=== PATIENT | male | born 1935 | race Caucasian/White ===

== ENCOUNTER 2018-01-31 20:41 | Emergency (ER) | payer OTHER ==
[~2018-01-31] VITALS: Ht 175.3 cm; Wt 80.3 kg
--- NOTE | 2018-01-31 20:45 | NUR ---
TO BED 10 BIB PARAMEDICS C/O GENRALIZED WEAKNEES S/P DIALYSIS TODAY. PT AAOX4 NO ACUTE DISTRESS NOTED, RESP EVEN AND UNLABORED. PLACE PT ON CARDIAC MONITORING, CONTINUOUS POX. ER MD AT BEDSIDE TO EVAL PT WITH ORDERS RECEIVED. WILL CARRY OUT ORDERS.
[2018-01-31] MEDS ORDERED: LORAZEPAM INJ 2 MG/ML VIAL IM ONE (21:00)
[2018-01-31] MEDS ORDERED: OLANZAPINE 10 MG VIAL IM ONE (21:00)
--- NOTE | 2018-01-31 21:01 | NUR ---
CHEF CONCIERGE AT BEDSIDE FOR BLOOD DRAW.
[2018-01-31 21:24] LABS: CALCIUM, SERUM 7.8 mg/dL (8.5-10.1); CARBON DIOXIDE 30 mmol/L (21-32); CHLORIDE 101 mmol/L (98-107); CREATININE 2.6 mg/dL (0.6-1.3); GLUCOSE 139 mg/dL (74-106); POTASSIUM 3.3 mmol/L (3.5-5.1); SODIUM SERUM 138 mmol/L (136-145); UREA NITROGEN, BLOOD 33 mg/dL (7-18)
[2018-01-31] MEDS ORDERED: VANCOMYCIN 1 GM VIAL ONE (21:32)
[2018-01-31] MEDS ORDERED: PIPERACILLIN /TAZOBACTAM 3.375 G VIAL IV ONE (21:32)
[2018-01-31 21:33] LABS: TROPONIN I 0.081 ng/mL (0.00-0.056)
[2018-01-31] MEDS: PIPERACILLIN /TAZOBACTAM 3.375 G in IV D5W 50 ML IV ONE (21:40)
[2018-01-31 21:41] LABS: BASOPHILS % (AUTO) 0.2 % (0.0-2.0); EOSINOPHILS % (AUTO) 1.6 % (0.0-6.0); HEMATOCRIT 33 % (39-51); HEMOGLOBIN 10.8 g/dL (13.5-17.5); LYMPHOCYTES # (AUTO) 0.8 /CMM (0.8-4.8); LYMPHOCYTES % (AUTO) 9.8 % (20.0-44.0); MEAN CORPUSCULAR HGB CONC 33 g/dl (31.0-36.0); MEAN CORPUSCULAR VOLUME 92 fL (80-96); MONOCYTES # (AUTO) 0.7 /CMM (0.1-1.30); MONOCYTES % (AUTO) 8.1 % (2.0-12.0); NEUTROPHILS # (AUTO) 6.7 /CMM (1.8-8.9); NEUTROPHILS % (AUTO) 80.3 % (43.0-81.0); RDW COEFFICIENT OF VARIATION 17.9 (11.5-15.0); RED BLOOD CELL COUNT(AUTO) 3.56 MIL/uL (4.5-6.0); WHITE BLOOD COUNT (AUTO) 8.4 K/uL (4.3-11.0)
[2018-01-31 21:42] LABS: NEUTROPHILS % (MANUAL) 72 (42-76); PLATELET COUNT (AUTO) 19 /CMM (150-450)
[2018-01-31 21:43] LABS: BAND % (MANUAL) 1 % (0.0-5.0); BASOPHILS % (MANUAL) 0 % (0.0-2.0); EOSINOPHILS % (MANUAL) 2 % (0-4); LYMPHOCYTES % (MANUAL) 12 % (16-48); MONOCYTES % (MANUAL) 13 % (0-11.0)
--- NOTE | 2018-01-31 21:50 | NUR ---
CALLED [facility] FOR TO
[2018-01-31] MEDS: VANCOMYCIN 1 GM in IV D5W 250 ML IV ONE (22:10)
--- NOTE | 2018-01-31 22:57 | NUR ---
pt resting quietly, no acute distress noted, resp even and unlabored. pt remains at bedside.
--- NOTE | 2018-01-31 23:12 | NUR ---
CALLED [facility] FOR TRANSFER DETAILS - THEY ARE STILL WAITING FOR ACCEPTING DR AND BED ASSIGNMENT
--- NOTE | 2018-01-31 23:34 | NUR ---
[facility]; Dr. joel accepting; room 6108 b; report [phone]; eta 1230
--- NOTE | 2018-02-01 00:10 | NUR ---
REPORT CALLED TO [facility] PK HEDRICK. AWAITING TRANSPORT.
[2018-02-01 00:11] VITALS: BP 106/53
--- NOTE | 2018-02-01 00:16 | NUR ---
[facility]SPORT AT BEDSIDE REPORT GIVEN TO HYDROGEOLOGY PROFESSOR.
[2018-02-01 01:10] LABS: BILIRUBIN,DIRECT 0.2 mg/dL (0.0-0.2); BILIRUBIN,TOTAL 0.6 mg/dL (0.2-1.0)
== END 2018-02-01 00:17 | disposition short-term general hospital (02) ==
LOC: ER 20:45
DX: L03.114 Cellulitis of left upper limb (principal); D69.6 Thrombocytopenia, unspecified; I12.0 Hypertensive chronic kidney disease with stage 5 chronic kidney disease or end stage renal disease; N18.6 End stage renal disease; Z99.2 Dependence on renal dialysis; R50.9 Fever, unspecified; Z49.01 Encounter for fitting and adjustment of extracorporeal dialysis catheter
CPT/HCPCS: 36415; 71045-TC; 80048-TC; 82247-TC; 82248-TC; 83605-TC; 84484-TC; 85025-TC; 85730-TC; 87040-TC; A4606; J2543; J3370; J7060; Z7610

== ENCOUNTER 2019-04-25 12:23 | Emergency (ER) | payer OTHER ==
[~2019-04-25] VITALS: Ht 172.7 cm; Wt 88.0 kg
--- NOTE | 2019-04-25 12:30 | NUR ---
PT BIB C/O R HIP PAIN, FORHEAD ABRASION AND BRUISING S/P GLF AT HOME, PT IS AAOX4, NOT IN RESPIRATORY DISTRESS, V/S STABLE, KEPT RESTED AND COMFORTABLE, WILL CONTINUE TO MONITOR,
--- NOTE | 2019-04-25 12:45 | NUR ---
SEEN AND EXAMINED BY DR. SAMPSON.
[2019-04-25] MEDS ORDERED: ONDANSETRON HCL/PF 4 MG/2 ML VIAL ONE (12:54)
[2019-04-25] MEDS ORDERED: MORPHINE SULFATE INJ 4 MG/ML DISP.SYRIN ONE ×2 (12:59→15:11)
[2019-04-25] MEDS ORDERED: ONDANSETRON HCL/PF 4 MG/2 ML VIAL IVP ONE (13:00)
[2019-04-25] MEDS ORDERED: IV NS 0.9% 1,000 ML BAG IV ONE (13:00)
[2019-04-25] MEDS ORDERED: MORPHINE SULFATE INJ 2 MG/ML DISP.SYRIN IV ONE ×2 (13:00→15:30)
--- NOTE | 2019-04-25 13:00 | NUR ---
IV LINE ESTABLISHED, BLOOD DRAWNED AND SENT TO LAB.
[2019-04-25 13:01] LABS: EOSINOPHILS % (AUTO) 2.7 % (0.0-6.0); HEMATOCRIT 33 % (39-51); LYMPHOCYTES % (AUTO) 23.3 % (20.0-44.0); MEAN CORPUSCULAR HGB CONC 33 g/dl (31.0-36.0); MEAN CORPUSCULAR VOLUME 91 fL (80-96); MONOCYTES # (AUTO) 0.5 /CMM (0.1-1.30); MONOCYTES % (AUTO) 11.6 % (2.0-12.0); NEUTROPHILS # (AUTO) 2.7 /CMM (1.8-8.9); NEUTROPHILS % (AUTO) 61.4 % (43.0-81.0); PLATELET COUNT (AUTO) 174 /CMM (150-450); RED BLOOD CELL COUNT(AUTO) 3.64 MIL/uL (4.5-6.0); WHITE BLOOD COUNT (AUTO) 4.4 K/uL (4.3-11.0)
--- NOTE | 2019-04-25 13:05 | NUR ---
PT IS WHEELED TO CT SCAN VIA [facility].
[2019-04-25 13:17] LABS: ALANINE AMINOTRANSFERASE 12 U/L (12-78); ALBUMIN 2.5 g/dL (3.4-5.0); ALKALINE PHOSPHATASE 90 U/L (46-116); ASPARTATE AMINOTRANSFERASE 17 U/L (15-37); BILIRUBIN,DIRECT 0.1 mg/dL (0.0-0.2); BILIRUBIN,TOTAL 0.5 mg/dL (0.2-1.0); CALCIUM, SERUM 8.3 mg/dL (8.5-10.1); CARBON DIOXIDE 32 mmol/L (21-32); CHLORIDE 101 mmol/L (98-107); CREATININE 6.3 mg/dL (0.6-1.3); GLUCOSE 124 mg/dL (74-106); POTASSIUM 4.2 mmol/L (3.5-5.1); SODIUM SERUM 140 mmol/L (136-145); TOTAL PROTEIN, SERUM 6.1 g/dL (6.4-8.2); UREA NITROGEN, BLOOD 62 mg/dL (7-18)
--- NOTE | 2019-04-25 13:23 | NUR ---
OPTICAL SALES ASSOCIATE AT BEDSIDE FOR XRAY.
--- NOTE | 2019-04-25 13:50 | NUR ---
CALLED [facility] FOR TRANSFER REQUEST. WAITING FOR MD CALL BACK
[2019-04-25] MEDS ORDERED: TDAP [DIPH/PERTUSSIS/TET] 0.5 ML VIAL IM ONE ×2 (13:56→14:00)
[2019-04-25] MEDS ORDERED: BACI/NEOM/POLY B OINT PKT 1 UDPKT PACKET TP ONE (14:00)
--- NOTE | 2019-04-25 14:11 | NUR ---
WOUND CARE DONE BY SLOT TAG INSERTER.
--- NOTE | 2019-04-25 14:58 | NUR ---
TRANSFER INFO: [facility] DIRECT ADMIT TO PK Wiley FOR REPORT [phone], ACCEPTING Timbo MILLER [facility] ETA 1600
--- NOTE | 2019-04-25 15:40 | NUR ---
REPORT GIVEN PK ENRIQUEZ FROM [facility] FOR SUZIE.
--- NOTE | 2019-04-25 15:58 | NUR ---
REPORT GIVEN TO EMT FOR PT TRANSPORT.
[2019-04-25 15:59] VITALS: BP 154/92
== END 2019-04-25 16:02 | disposition short-term general hospital (02) ==
LOC: ER 12:26
DX: S72.144A Nondisplaced intertrochanteric fracture of right femur, initial encounter for closed fracture (principal); S61.411A Laceration without foreign body of right hand, initial encounter; S00.83XA Contusion of other part of head, initial encounter; R51 Headache; N18.6 End stage renal disease; Z85.46 Personal history of malignant neoplasm of prostate; Z98.890 Other specified postprocedural states; W01.198A Fall on same level from slipping, tripping and stumbling with subsequent striking against other object, initial encounter; Y93.01 Activity, walking, marching and hiking; Y92.89 Other specified places as the place of occurrence of the external cause; Y99.8 Other external cause status
CPT/HCPCS: 36415; 70450; 71045; 73130; 73502; 80048; 80076; 85025; 85730; 90471; 90715; 93005; 96372; 96374; 96375; 96376; 99285; A6403 ×2; J2270 ×2; J2405; J7030

== ENCOUNTER 2019-10-26 15:34 | Emergency (ER) | payer OTHER ==
[~2019-10-26] VITALS: Ht 185.4 cm; Wt 90.7 kg
--- NOTE | 2019-10-26 16:08 | NUR ---
BIBRA FOR GENERALIZED WEAKNESS, REDNESS AND SWELLING AT JUAN LUIS EXTREMITY AND L CHEST AREA. TO ER BED 8, HOOKED TO MONITOR, CHANGED TO HOSP GOWN, AT BEDSIDE, PATIENT AOx3, BREATHING EVEN AND UNLABORED. ON DIALYSIS FOR ESRD ON . LAST DIALYSIS YESTERDAY. AWAITING MD AHUJA.
--- NOTE | 2019-10-26 16:09 | NUR ---
DR ESQUIVEL AT BEDSIDE
[2019-10-26] MEDS ORDERED: ALLO100T PO (16:14)
[2019-10-26] MEDS ORDERED: [UNRECOGNIZED DRUG - OTHER] PO (16:14)
[2019-10-26] MEDS ORDERED: CEFEPIME 1 GM VIAL ONE (16:18)
[2019-10-26] MEDS ORDERED: IBUPROFEN 600 MG TABLET PO ONE (16:18)
[2019-10-26] MEDS ORDERED: PIPERACILLIN /TAZOBACTAM 3.375 G VIAL IV ONE (16:18)
[2019-10-26] MEDS ORDERED: HYDROCORTISONE SOD SUCCINATE 100 MG/2 ML VIAL ONE (16:24)
[2019-10-26] MEDS: IBUPROFEN 600 MG TABLET PO ONE ×2 (16:29→16:31)
[2019-10-26] MEDS ORDERED: CEFEPIME 1 GM in IV D5W 50 ML IV ONE (16:30)
[2019-10-26] MEDS ORDERED: IV NS 0.9% 1,000 ML BAG IV ONE (16:30)
[2019-10-26] MEDS ORDERED: PIPERACILLIN /TAZOBACTAM 3.375 G in IV D5W 50 ML IV ONE (16:30)
[2019-10-26] MEDS ORDERED: HYDROCORTISONE SOD SUCCINATE 100 MG/2 ML VIAL IV ONE (16:30)
[2019-10-26] MEDS ORDERED: VANCOMYCIN 1 GM in IV D5W 250 ML IV ONE (16:30)
[2019-10-26 16:32] LABS: EOSINOPHILS % (AUTO) 0.4 % (0.0-6.0); HEMATOCRIT 37 % (39-51); HEMOGLOBIN 11.8 g/dL (13.5-17.5); LYMPHOCYTES # (AUTO) 0.4 /CMM (0.8-4.8); LYMPHOCYTES % (AUTO) 4.4 % (20.0-44.0); MEAN CORPUSCULAR HGB CONC 32 g/dl (31.0-36.0); MEAN CORPUSCULAR VOLUME 93 fL (80-96); MONOCYTES # (AUTO) 0.3 /CMM (0.1-1.30); MONOCYTES % (AUTO) 3.2 % (2.0-12.0); NEUTROPHILS # (AUTO) 7.4 /CMM (1.8-8.9); PLATELET COUNT (AUTO) 204 /CMM (150-450); RED BLOOD CELL COUNT(AUTO) 3.93 MIL/uL (4.5-6.0); WHITE BLOOD COUNT (AUTO) 8.1 K/uL (4.3-11.0)
[2019-10-26 16:44] LABS: CALCIUM, SERUM 8.5 mg/dL (8.5-10.1); CARBON DIOXIDE 32 mmol/L (21-32); CHLORIDE 100 mmol/L (98-107); GLUCOSE 99 mg/dL (74-106); POTASSIUM 4.2 mmol/L (3.5-5.1); SODIUM SERUM 142 mmol/L (136-145); UREA NITROGEN, BLOOD 61 mg/dL (7-18)
[2019-10-26 16:50] LABS: ALANINE AMINOTRANSFERASE 13 U/L (12-78); ALBUMIN 2.6 g/dL (3.4-5.0); ALKALINE PHOSPHATASE 108 U/L (46-116); ASPARTATE AMINOTRANSFERASE 23 U/L (15-37); BILIRUBIN,DIRECT 0.2 mg/dL (0.0-0.2); TOTAL PROTEIN, SERUM 6.6 g/dL (6.4-8.2)
--- NOTE | 2019-10-26 17:00 | NUR ---
CALLED [facility] [phone]
--- NOTE | 2019-10-26 17:03 | NUR ---
Note rebeccaone in EDM - 10/26/19 at 1806 by JOSE BIBRA FOR GENERALIZED WEAKNESS, REDNESS AND SWELLING AT JUAN LUIS EXTREMITY AND L CHEST AREA. TO ER BED 8, HOOKED TO MONITOR, CHANGED TO HOSP GOWN, AT BEDSIDE, PATIENT AOx3, BREATHING EVEN AND UNLABORED. ON DIALYSIS FOR ESRD ON . LAST DIALYSIS YESTERDAY. DR ESQUIVEL AT BEDSIDE
--- NOTE | 2019-10-26 18:00 | NUR ---
US TECH AT BEDSIDE
[2019-10-26 21:29] VITALS: BP 108/63
--- NOTE | 2019-10-26 21:51 | NUR ---
TRANSFER INFORMATION: PT WILL BE TRANSFERRED TO [facility] PER INSURANCE REQUEST BED ASSIGNMENT: TELE [id number] NUMBER FOR REPORT: [phone] ACCEPTING MD: DR. ESPINOZA TRANSPORTATION WITH [facility] ETA 0258
--- NOTE | 2019-10-26 22:07 | NUR ---
[facility] WILL CALL BACK FOR REPORT. NURSE IS NOT AVAILABLE
--- NOTE | 2019-10-26 22:27 | NUR ---
REPORT GIVEN TO PK [facility]
--- NOTE | 2019-10-26 22:30 | NUR ---
REPORT GIVEN TO EMS. PT STABLE FOR TRANSFER
== END 2019-10-26 22:44 | disposition short-term general hospital (02) ==
LOC: ER 15:38
DX: A41.9 Sepsis, unspecified organism (principal); N18.6 End stage renal disease; L03.313 Cellulitis of chest wall; Z99.2 Dependence on renal dialysis; Z98.890 Other specified postprocedural states; Z85.46 Personal history of malignant neoplasm of prostate; Z79.899 Other long term (current) drug therapy
CPT/HCPCS: 36415; 71045; 80048; 80076; 83605; 84145; 84484; 85025; 85730; 86140; 86850; 87040 ×2; 87804 ×2; 93005; 93971; 96365; 96367; 96375; 99285; J1720; J2543 ×2; J3370; J7030; J7060 ×2; J0692

== ENCOUNTER 2020-01-22 13:46 | Emergency (ER) | payer OTHER ==
[~2020-01-22] VITALS: Ht 172.7 cm; Wt 85.7 kg
[~2020-01-22 13:46] MED LIST: ALLO100T PO; [UNRECOGNIZED DRUG - OTHER] PO
--- NOTE | 2020-01-22 13:50 | NUR ---
PT BIBRA FROM HOME TO ED BED 08. PER EMS REPORT, CALLED [phone] S/P PT GOT DIZZY AND WEAK WHILE TRYING TO STAND UP AND AMBULATE. PT JUST FINISHED DIALYSIS TODAY. 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 AWAITING MD AHUJA.
--- NOTE | 2020-01-22 14:24 | NUR ---
DR MCDERMOTT AT BEDSIDE FOR EVAL.
--- NOTE | 2020-01-22 14:30 | NUR ---
IV LINE STARTED BLOOD DRAWN AND SENT TO LAB.
[2020-01-22 15:37] LABS: BASOPHILS # (AUTO) 0.1 /CMM (0.0-0.2); BASOPHILS % (AUTO) 0.8 % (0.0-2.0); EOSINOPHILS % (AUTO) 0.6 % (0.0-6.0); HEMATOCRIT 32 % (39-51); HEMOGLOBIN 10.4 g/dL (13.5-17.5); LYMPHOCYTES # (AUTO) 0.5 /CMM (0.8-4.8); LYMPHOCYTES % (AUTO) 5.5 % (20.0-44.0); MEAN CORPUSCULAR HGB CONC 33 g/dl (31.0-36.0); MEAN CORPUSCULAR VOLUME 95 fL (80-96); MONOCYTES # (AUTO) 0.5 /CMM (0.1-1.30); MONOCYTES % (AUTO) 5.4 % (2.0-12.0); NEUTROPHILS # (AUTO) 7.8 /CMM (1.8-8.9); NEUTROPHILS % (AUTO) 87.7 % (43.0-81.0); PLATELET COUNT (AUTO) 217 /CMM (150-450); RED BLOOD CELL COUNT(AUTO) 3.36 MIL/uL (4.5-6.0); WHITE BLOOD COUNT (AUTO) 8.9 K/uL (4.3-11.0)
[2020-01-22 15:45] LABS: CALCIUM, SERUM 8.9 mg/dL (8.5-10.1); CARBON DIOXIDE 32 mmol/L (21-32); CHLORIDE 100 mmol/L (98-107); CREATININE 2.8 mg/dL (0.6-1.3); GLUCOSE 105 mg/dL (74-106); POTASSIUM 3.5 mmol/L (3.5-5.1); SODIUM SERUM 138 mmol/L (136-145); UREA NITROGEN, BLOOD 27 mg/dL (7-18)
[2020-01-22 15:51] LABS: ALANINE AMINOTRANSFERASE 12 U/L (12-78); ALBUMIN 2.6 g/dL (3.4-5.0); ALKALINE PHOSPHATASE 118 U/L (46-116); ASPARTATE AMINOTRANSFERASE 20 U/L (15-37); BILIRUBIN,DIRECT 0.2 mg/dL (0.0-0.2); BILIRUBIN,TOTAL 0.8 mg/dL (0.2-1.0); TOTAL PROTEIN, SERUM 6.7 g/dL (6.4-8.2)
--- NOTE | 2020-01-22 16:27 | NUR ---
PT TO RADIOLOGY FOR HEAD CT SCAN VIA [facility].
[2020-01-22 16:38] LABS: APPEARANCE,URINE Clear (CLEAR); BILIRUBIN,URINE Negative (NEGATIVE); BLOOD, URINE Negative Ery/uL (NEGATIVE); COLOR,URINE Yellow (YELLOW); KETONES,URINE Negative (NEGATIVE); LEUKOCYTE ESTERASE ,URINE Negative (NEGATIVE); NITRITE, URINE Negative (NEGATIVE); PH,URINE 8.5 (5.0-8.0); PROTEIN,URINE 100 mg/dl (NEGATIVE); UGLUCOSE Negative (NEGATIVE); UROBILINOGEN,URINE 0.2 EU/dL (0.2)
[2020-01-22 16:39] LABS: RBC,URINE 0-2 /HPF (0-2)
[2020-01-22 16:40] LABS: BACTERIA,URINE None seen /HPF (None Seen); SQUAMOUS EPITHELIAL CELL,UR Rare /HPF (None Seen)
--- NOTE | 2020-01-22 17:55 | NUR ---
PT MORE AWAKE. ASK FOR SOMETHIG TO EAT. PROVIDED W/ MEAL TRAY.
--- NOTE | 2020-01-22 18:20 | NUR ---
CALLED [facility].
--- NOTE | 2020-01-22 19:15 | NUR ---
REPORT GIVEN TO HERIBERTO WHITTINGTON FOR SUZIE.
--- NOTE | 2020-01-22 20:25 | NUR ---
PATIENT NOTIFIED OF 'S CONCERN DUE TO NOT PICKING UP HIS PHONE.
--- NOTE | 2020-01-22 20:28 | NUR ---
PATIENT TALKING TO ON PHONE.
--- NOTE | 2020-01-22 21:30 | NUR ---
RECEIVED CALL FROM [facility]. [facility] tele [phone] dr. megha pulido als prn [phone]
[2020-01-22 22:07] VITALS: BP 125/67
--- NOTE | 2020-01-22 22:16 | NUR ---
REPORT GIVEN TO DOLORES WHITTINGTON AT [facility] FOR SUZIE.
--- NOTE | 2020-01-22 22:17 | NUR ---
REPORT GIVEN TO TRANSPORT TEAM FOR SUZIE. AND TRANSFERRING RESPONSIBILITIES.
== END 2020-01-22 22:25 | disposition short-term general hospital (02) ==
LOC: ER 13:51
DX: R53.1 Weakness (principal); N18.6 End stage renal disease; Z99.2 Dependence on renal dialysis; Z98.890 Other specified postprocedural states; Z79.899 Other long term (current) drug therapy
CPT/HCPCS: 36415; 70450-TC; 71045-TC; 80048-TC; 80076-TC; 81000-TC; 83605-TC; 84484-TC; 85025-TC; 85730-TC; 87040-TC; 87086-TC

== ENCOUNTER 2020-06-17 08:30 | Emergency (ER) | payer OTHER ==
[~2020-06-17] VITALS: Ht 172.7 cm; Wt 74.8 kg
--- NOTE | 2020-06-17 08:30 | NUR ---
PT BIBA FROM HOME S/P GLF. PT DENIES KO. PT STATES " I GOT DIZZY THEN FELL DOWN". PT AAOX4, LACERATION ON THE FOREHEAD NOTED, RESPIRATIONS EVEN AND UNLABORED ON RA W/ NAD NOTED. PT CONNECTED TO THE COMPRESSED GASES TESTER AND POX.
--- NOTE | 2020-06-17 08:35 | NUR ---
BLOOD COLLECTED AND SENT TO LAB
[2020-06-17] MEDS ORDERED: IV NS 0.9% 500 ML BAG IV ONE (09:00)
[2020-06-17 09:11] LABS: BASOPHILS % (AUTO) 0.7 % (0.0-2.0); EOSINOPHILS % (AUTO) 3.9 % (0.0-6.0); HEMATOCRIT 32 % (39-51); HEMOGLOBIN 10.5 g/dL (13.5-17.5); LYMPHOCYTES # (AUTO) 0.9 /CMM (0.8-4.8); LYMPHOCYTES % (AUTO) 22.6 % (20.0-44.0); MEAN CORPUSCULAR HGB CONC 32 g/dl (31.0-36.0); MEAN CORPUSCULAR VOLUME 99 fL (80-96); MONOCYTES # (AUTO) 0.5 /CMM (0.1-1.30); MONOCYTES % (AUTO) 12.6 % (2.0-12.0); NEUTROPHILS # (AUTO) 2.5 /CMM (1.8-8.9); NEUTROPHILS % (AUTO) 60.2 % (43.0-81.0); PLATELET COUNT (AUTO) 192 /CMM (150-450); RED BLOOD CELL COUNT(AUTO) 3.27 MIL/uL (4.5-6.0); WHITE BLOOD COUNT (AUTO) 4.1 K/uL (4.3-11.0)
--- NOTE | 2020-06-17 09:20 | NUR ---
PT TAKEN TO RADIOLOGY FOR CT
[2020-06-17] MEDS ORDERED: ROSU20TA32 PO (09:31)
[2020-06-17 09:32] LABS: CALCIUM, SERUM 8.1 mg/dL (8.5-10.1); CARBON DIOXIDE 22 mmol/L (21-32); CHLORIDE 101 mmol/L (98-107); CREATININE 6.2 mg/dL (0.6-1.3); GLUCOSE 73 mg/dL (74-106); SODIUM SERUM 138 mmol/L (136-145); UREA NITROGEN, BLOOD 78 mg/dL (7-18)
--- NOTE | 2020-06-17 09:44 | NUR ---
PT BACK FROM RADIOLOGY
--- NOTE | 2020-06-17 10:14 | NUR ---
[facility] CALLED AND PRESENTED CASE TO SUNDEEP WHITTINGTON,BYRON ASHFORD WILL GIVE US A CALL
--- NOTE | 2020-06-17 11:53 | NUR ---
ACCEPTED TO [facility] BY Shelley SHEPARD GIVE REPORT TO [phone]. [facility] ETA:[id number]
[2020-06-17 12:34] VITALS: BP 107/55
--- NOTE | 2020-06-17 12:50 | NUR ---
REPORT GIVEN TO PK VALDES FOR SUZIE AT THE [facility]
--- NOTE | 2020-06-17 12:51 | NUR ---
[facility] AT BEDSIDE FOR PT TRANSPORT TO [facility]. REPORT GIVEN.
--- NOTE | 2020-06-17 12:55 | NUR ---
PT LEFT ON GURNEY WITH 2 AMBULANCE STAFF ON STABLE CONDITION, NAD NOTED.
== END 2020-06-17 12:56 | disposition short-term general hospital (02) ==
LOC: ER 08:37
DX: S00.03XA Contusion of scalp, initial encounter (principal); R53.1 Weakness; I12.0 Hypertensive chronic kidney disease with stage 5 chronic kidney disease or end stage renal disease; E11.22 Type 2 diabetes mellitus with diabetic chronic kidney disease; N18.6 End stage renal disease; R42 Dizziness and giddiness; Z99.2 Dependence on renal dialysis; Z98.890 Other specified postprocedural states; Z85.46 Personal history of malignant neoplasm of prostate; Z79.899 Other long term (current) drug therapy; W18.39XA Other fall on same level, initial encounter; Y93.89 Activity, other specified; Y92.89 Other specified places as the place of occurrence of the external cause; Y99.8 Other external cause status
CPT/HCPCS: 36415; 70450; 71045; 80048; 84484; 85025; 93005; 96360; 96361; 99285; J7040

== ENCOUNTER 2021-03-19 23:19 | Emergency (ER) | payer OTHER ==
[~2021-03-19] VITALS: Ht 172.7 cm; Wt 76.7 kg
[~2021-03-19 23:19] MED LIST changes: -ALLO100T PO; +ROSU20TA32 PO
[2021-03-19 23:54] LABS: BASOPHILS % (AUTO) 0.5 % (0.0-2.0); EOSINOPHILS % (AUTO) 0.4 % (0.0-6.0); HEMATOCRIT 38 % (39-51); HEMOGLOBIN 12.1 g/dL (13.5-17.5); LYMPHOCYTES # (AUTO) 0.5 /CMM (0.8-4.8); LYMPHOCYTES % (AUTO) 5.2 % (20.0-44.0); MEAN CORPUSCULAR HGB CONC 32 g/dl (31.0-36.0); MEAN CORPUSCULAR VOLUME 100 fL (80-96); MONOCYTES # (AUTO) 0.2 /CMM (0.1-1.30); MONOCYTES % (AUTO) 2.6 % (2.0-12.0); NEUTROPHILS % (AUTO) 91.3 % (43.0-81.0); PLATELET COUNT (AUTO) 158 /CMM (150-450); RED BLOOD CELL COUNT(AUTO) 3.78 MIL/uL (4.5-6.0); WHITE BLOOD COUNT (AUTO) 8.7 K/uL (4.3-11.0)
[2021-03-20] MEDS ORDERED: VANCOMYCIN 1 GM in IV D5W 250 ML IV ONE
[2021-03-20] MEDS ORDERED: VANCOMYCIN 1 GM VIAL ONE (00:02)
[2021-03-20 00:10] LABS: CALCIUM, SERUM 8.8 mg/dL (8.5-10.1); CARBON DIOXIDE 32 mmol/L (21-32); CHLORIDE 101 mmol/L (98-107); CREATININE 3.7 mg/dL (0.6-1.3); GLUCOSE 100 mg/dL (74-106); PHOSPHORUS 2.6 mg/dL (2.5-4.9); POTASSIUM 4.4 mmol/L (3.5-5.1); SODIUM SERUM 141 mmol/L (136-145); UREA NITROGEN, BLOOD 38 mg/dL (7-18)
[2021-03-20 00:20] LABS: ALANINE AMINOTRANSFERASE 12 U/L (12-78); ALBUMIN 2.9 g/dL (3.4-5.0); ALKALINE PHOSPHATASE 141 U/L (46-116); ASPARTATE AMINOTRANSFERASE 22 U/L (15-37); BILIRUBIN,DIRECT 0.2 mg/dL (0.0-0.2); BILIRUBIN,TOTAL 0.8 mg/dL (0.2-1.0); NT-PRO BNP 7986 pg/mL (0-125); TOTAL PROTEIN, SERUM 6.9 g/dL (6.4-8.2)
[2021-03-20 04:30] VITALS: BP 116/62
== END 2021-03-20 04:50 | disposition short-term general hospital (02) ==
LOC: ER 23:21
DX: L03.114 Cellulitis of left upper limb (principal); L03.313 Cellulitis of chest wall; N18.6 End stage renal disease; Z99.2 Dependence on renal dialysis; Z20.822 Contact with and (suspected) exposure to COVID-19; R94.31 Abnormal electrocardiogram [ECG] [EKG]; Z85.46 Personal history of malignant neoplasm of prostate; I89.0 Lymphedema, not elsewhere classified
CPT/HCPCS: 36415; 71045; 73060; 73090; 80048; 80076; 83605; 83735; 83880; 84100; 84145; 84484; 85025; 85730; 87040 ×2; 87081; 87426; 93005; 93971; 96365; 99285; C9803; J3370

== ENCOUNTER 2021-04-07 19:27 | Emergency (ER) | payer OTHER ==
[~2021-04-07] VITALS: Ht 172.7 cm; Wt 76.7 kg
--- NOTE | 2021-04-07 19:35 | NUR ---
PATIENT CAME IN WITH C/O NONRADIATING MIDSTERNAL CHEST PAIN X 30 MIN MANAGER INTEGRITY. LAST HD TODAY, LEFT AC SHUNT PRESENT, INTACT. V/S WITHIN NORMAL LIMITS, PATIENT BREAHTING IS EVEN AND UNLAORBED. PATIENT CONNCETED TO CARDIAC MONIOTR AND POX. WILL CONTINUE TO MONIOTR.
[2021-04-07] MEDS ORDERED: NITROGLYCERIN PACKET 1 GM PACKET TD ONE (20:00)
[2021-04-07] MEDS ORDERED: ASPIRIN 325 MG TABLET PO ONE (20:00)
[2021-04-07 20:09] LABS: CALCIUM, SERUM 8.4 mg/dL (8.5-10.1); CARBON DIOXIDE 33 mmol/L (21-32); CHLORIDE 99 mmol/L (98-107); CREATININE 3.3 mg/dL (0.6-1.3); GLUCOSE 98 mg/dL (74-106); POTASSIUM 4.8 mmol/L (3.5-5.1); SODIUM SERUM 138 mmol/L (136-145); UREA NITROGEN, BLOOD 39 mg/dL (7-18)
[2021-04-07] MEDS ORDERED: ASPIRIN 325 MG TABLET ONE (20:11)
[2021-04-07] MEDS ORDERED: NITROGLYCERIN PACKET 1 GM PACKET ONE (20:11)
--- NOTE | 2021-04-07 20:20 | NUR ---
PATIENT TO CT Addendum: 04/07/21 at 2027 by COLIN X RAY AT BEDSIDE
[2021-04-07 20:37] LABS: BASOPHILS % (AUTO) 0.4 % (0.0-2.0); EOSINOPHILS % (AUTO) 3.1 % (0.0-6.0); HEMATOCRIT 32 % (39-51); HEMOGLOBIN 10.6 g/dL (13.5-17.5); LYMPHOCYTES % (AUTO) 30.1 % (20.0-44.0); MEAN CORPUSCULAR HGB CONC 33 g/dl (31.0-36.0); MEAN CORPUSCULAR VOLUME 101 fL (80-96); MONOCYTES # (AUTO) 0.6 /CMM (0.1-1.30); MONOCYTES % (AUTO) 17.8 % (2.0-12.0); NEUTROPHILS # (AUTO) 1.6 /CMM (1.8-8.9); NEUTROPHILS % (AUTO) 48.6 % (43.0-81.0); PLATELET COUNT (AUTO) 173 /CMM (150-450); RED BLOOD CELL COUNT(AUTO) 3.22 MIL/uL (4.5-6.0); WHITE BLOOD COUNT (AUTO) 3.3 K/uL (4.3-11.0)
--- NOTE | 2021-04-07 20:39 | NUR ---
[facility] CONTACT CELL: [phone] HOME: [phone]
--- NOTE | 2021-04-07 21:08 | NUR ---
Patient does not wish to proceed with medical care recommended by Dr. DURAN . Patient given information related to possible complications, up to and including , which could occur as a result of leaving the hospital at this time. Patient verbalizes understanding of risks involved due to leaving against medical advice. Patient has signed AMA form.
[2021-04-07 21:09] VITALS: BP 110/65
[2021-04-07 21:11] LABS: EOSINOPHILS % (MANUAL) 4 % (0-4); LYMPHOCYTES % (MANUAL) 30 % (16-48); MONOCYTES % (MANUAL) 16 % (0-11.0); NEUTROPHILS % (MANUAL) 50 (42-76)
== END 2021-04-07 21:09 | disposition left against medical advice (07) ==
LOC: ER 19:29
DX: R07.89 Other chest pain (principal); N18.6 End stage renal disease; Z98.890 Other specified postprocedural states; Z86.73 Personal history of transient ischemic attack (TIA), and cerebral infarction without residual deficits; Z79.899 Other long term (current) drug therapy
CPT/HCPCS: 36415; 71045-TC; 80048-TC; 84484-TC; 85025-TC

== ENCOUNTER 2021-05-06 20:36 | Emergency (ER) | payer OTHER ==
[~2021-05-06] VITALS: Ht 172.7 cm; Wt 76.7 kg
--- NOTE | 2021-05-06 20:41 | NUR ---
PT AAOX4. BIBWIFE C/O CHEST TIGHTNESS 4/10 PAIN. PLACED ON RECEIPT AND REPORT CLERK AND PULSE OX. AWAITING ER MD FOR EVAL AND ORDERS. IV LINE ESTABLISHED LAC 20G, BLOOD WORK COLLECTED, SENT TO LAB.
--- NOTE | 2021-05-06 20:53 | NUR ---
RADIOLOGY AT BEDSIDE
[2021-05-06 21:06] LABS: HEMOGLOBIN 11.6 g/dL (13.5-17.5); LYMPHOCYTES # (AUTO) 1.5 K/uL (0.8-4.8); MONOCYTES # (AUTO) 0.7 K/uL (0.1-1.30); NEUTROPHILS # (AUTO) 2.5 K/uL (1.8-8.9)
[2021-05-06 21:09] LABS: BASOPHILS % (AUTO) 0.2 % (0.0-2.0); EOSINOPHILS % (AUTO) 2.2 % (0.0-6.0); HEMATOCRIT 35 % (39-51); LYMPHOCYTES % (AUTO) 30.4 % (20.0-44.0); MEAN CORPUSCULAR HGB CONC 33 g/dl (31.0-36.0); MEAN CORPUSCULAR VOLUME 99 fL (80-96); MONOCYTES % (AUTO) 15.2 % (2.0-12.0); PLATELET COUNT (AUTO) 180 K/uL (150-450); RED BLOOD CELL COUNT(AUTO) 3.56 MIL/uL (4.5-6.0); WHITE BLOOD COUNT (AUTO) 4.9 K/uL (4.3-11.0)
[2021-05-06 21:18] LABS: CALCIUM, SERUM 8.6 mg/dL (8.5-10.1); CARBON DIOXIDE 27 mmol/L (21-32); CHLORIDE 101 mmol/L (98-107); CREATININE 4.6 mg/dL (0.6-1.3); GLUCOSE 113 mg/dL (74-106); POTASSIUM 4.1 mmol/L (3.5-5.1); SODIUM SERUM 140 mmol/L (136-145); UREA NITROGEN, BLOOD 50 mg/dL (7-18)
[2021-05-06 22:30] LABS: LYMPHOCYTES % (MANUAL) 25 % (16-48); MONOCYTES % (MANUAL) 14 % (0-11.0); NEUTROPHILS % (MANUAL) 59 (42-76)
[2021-05-06 22:31] LABS: EOSINOPHILS % (MANUAL) 2 % (0-4)
--- NOTE | 2021-05-06 22:38 | NUR ---
JAYSONID SWABBED, SENT TO LAB.
[2021-05-06] MEDS ORDERED: ASPIRIN 81 MG TAB.CHEW ONE (22:52)
[2021-05-06] MEDS: ASPIRIN 81 MG TAB.CHEW PO ONE (22:58)
--- NOTE | 2021-05-06 23:16 | NUR ---
CONTACTED [facility] REGARDING PT TRANSFER, BYRON ASHFORD WILL CALL SHORTLY TO SPEAK WITH MARILY ASHFORD
--- NOTE | 2021-05-06 23:26 | NUR ---
DR BERGER FROM [place] ON THE YONG W/ DR VELEZ
[2021-05-07 00:36] VITALS: BP 136/67
--- NOTE | 2021-05-07 01:44 | NUR ---
PT GOT ACCEPTED AT [facility] BY ANA WHITFIELD. GOING TO RM 3721 TELE. # FOR REPORT: [phone]. ALS TRANSPO BY [facility] AT 0245
--- NOTE | 2021-05-07 01:59 | NUR ---
REPORT GIVEN TO SAMEER WHITTINGTON FOR SUZIE.
--- NOTE | 2021-05-07 03:25 | NUR ---
PT TRANSFERED TO [facility]
== END 2021-05-07 04:19 | disposition short-term general hospital (02) ==
LOC: ER 20:38
DX: R07.89 Other chest pain (principal); I49.8 Other specified cardiac arrhythmias; Z20.822 Contact with and (suspected) exposure to COVID-19; N18.6 End stage renal disease; Z99.2 Dependence on renal dialysis; Z85.46 Personal history of malignant neoplasm of prostate
CPT/HCPCS: 36415; 71045; 80048; 84484; 85007; 85025; 87426; 93005; 99285; C9803

== ENCOUNTER 2021-07-03 21:22 | Emergency (ER) | payer OTHER ==
[~2021-07-03] VITALS: Ht 172.7 cm; Wt 75.7 kg
[2021-07-03] MEDS ORDERED: IV NS 0.9% 1,000 ML BAG IV ONE (23:00)
--- NOTE | 2021-07-03 23:00 | NUR ---
PATIENT BIBWIFE C/O SEVERE DIARRHEA S/P ANTIBIOTICS TREATMENT FOR SEPSIS 2 WEEKS AGO. PATIENT DENIES N/V. PATIENT IS A/OX 4, RR EVEN AND UNLABORED, NO SOB NOTED. PATIENT CONNECTED TO DIE REPAIRER FORGING AND POX.
[2021-07-03 23:24] LABS: BASOPHILS % (AUTO) 0.7 % (0.0-2.0); EOSINOPHILS % (AUTO) 3.4 % (0.0-6.0); HEMATOCRIT 31 % (39-51); HEMOGLOBIN 10.1 g/dL (13.5-17.5); LYMPHOCYTES # (AUTO) 1.1 K/uL (0.8-4.8); LYMPHOCYTES % (AUTO) 18.7 % (20.0-44.0); MEAN CORPUSCULAR HGB CONC 33 g/dl (31.0-36.0); MEAN CORPUSCULAR VOLUME 96 fL (80-96); MONOCYTES # (AUTO) 0.8 K/uL (0.1-1.30); NEUTROPHILS # (AUTO) 3.8 K/uL (1.8-8.9); NEUTROPHILS % (AUTO) 63.2 % (43.0-81.0); PLATELET COUNT (AUTO) 232 K/uL (150-450); RED BLOOD CELL COUNT(AUTO) 3.23 MIL/uL (4.5-6.0)
[2021-07-03 23:31] LABS: CALCIUM, SERUM 8.2 mg/dL (8.5-10.1); CARBON DIOXIDE 28 mmol/L (21-32); CHLORIDE 98 mmol/L (98-107); CREATININE 4.9 mg/dL (0.6-1.3); GLUCOSE 87 mg/dL (74-106); POTASSIUM 3.9 mmol/L (3.5-5.1); SODIUM SERUM 138 mmol/L (136-145); UREA NITROGEN, BLOOD 56 mg/dL (7-18)
[2021-07-03 23:38] LABS: ALBUMIN 2.3 g/dL (3.4-5.0); ALKALINE PHOSPHATASE 107 U/L (46-116); ASPARTATE AMINOTRANSFERASE 22 U/L (15-37); BILIRUBIN,DIRECT 0.2 mg/dL (0.0-0.2); BILIRUBIN,TOTAL 0.6 mg/dL (0.2-1.0); LIPASE 72 U/L (73-393); TOTAL PROTEIN, SERUM 6.5 g/dL (6.4-8.2)
[2021-07-03 23:49] LABS: ALANINE AMINOTRANSFERASE < 6 U/L (12-78)
--- NOTE | 2021-07-04 00:12 | NUR ---
CALLED [facility], WILL PICK PT UP ETA 25 MIN.
[2021-07-04 01:14] VITALS: BP 114/55
== END 2021-07-04 00:15 | disposition home or self-care (01) ==
LOC: ER 21:29
DX: R19.7 Diarrhea, unspecified (principal); E11.22 Type 2 diabetes mellitus with diabetic chronic kidney disease; N18.6 End stage renal disease; Z98.890 Other specified postprocedural states; Z79.899 Other long term (current) drug therapy; Z86.73 Personal history of transient ischemic attack (TIA), and cerebral infarction without residual deficits; Z85.46 Personal history of malignant neoplasm of prostate
CPT/HCPCS: 36415; 80048-TC; 80076-TC; 83690-TC; 85025-TC

== ENCOUNTER 2021-07-15 03:12 | Emergency (ER) | payer OTHER ==
[~2021-07-15] VITALS: Ht 172.7 cm; Wt 75.7 kg
--- NOTE | 2021-07-15 03:22 | NUR ---
pt bibra c/o fever. pt aaox4 breathing evenly and unlabored. Upon assessmetn, pt has lue dialysis fistula, lue redness and swelling, and 15cm u shape lac with muscle visualization on left leg calf. Per pt, his left arm is always swollen and red with "lymph edema". Per ems, pt left calf "was caught on the gurney" when they transferred pt from bed to ems gurney. Pt denies pain, md aware and at bedside for evaluation. rt ac 20g initated and blood and blood cultures sent to lab. pt given blanket and call light within reach.
[2021-07-15] MEDS ORDERED: LIDOCAINE HCL/MPF 1% 30 ML VIAL IJ ONE (03:31)
[2021-07-15 03:57] LABS: BASOPHILS % (AUTO) 0.3 % (0.0-2.0); EOSINOPHILS % (AUTO) 0.1 % (0.0-6.0); HEMATOCRIT 33 % (39-51); HEMOGLOBIN 10.5 g/dL (13.5-17.5); LYMPHOCYTES # (AUTO) 0.5 K/uL (0.8-4.8); LYMPHOCYTES % (AUTO) 6.3 % (20.0-44.0); MEAN CORPUSCULAR HGB CONC 32 g/dl (31.0-36.0); MEAN CORPUSCULAR VOLUME 96 fL (80-96); MONOCYTES # (AUTO) 0.2 K/uL (0.1-1.30); MONOCYTES % (AUTO) 2.9 % (2.0-12.0); NEUTROPHILS # (AUTO) 6.9 K/uL (1.8-8.9); NEUTROPHILS % (AUTO) 90.4 % (43.0-81.0); PLATELET COUNT (AUTO) 305 K/uL (150-450); RED BLOOD CELL COUNT(AUTO) 3.41 MIL/uL (4.5-6.0); WHITE BLOOD COUNT (AUTO) 7.7 K/uL (4.3-11.0)
--- NOTE | 2021-07-15 04:01 | NUR ---
[facility] [phone]
[2021-07-15 04:06] LABS: CALCIUM, SERUM 8.3 mg/dL (8.5-10.1); CARBON DIOXIDE 31 mmol/L (21-32); CHLORIDE 102 mmol/L (98-107); CREATININE 3.3 mg/dL (0.6-1.3); GLUCOSE 106 mg/dL (74-106); POTASSIUM 3.8 mmol/L (3.5-5.1); SODIUM SERUM 143 mmol/L (136-145); UREA NITROGEN, BLOOD 32 mg/dL (7-18)
[2021-07-15 04:12] LABS: ALANINE AMINOTRANSFERASE < 6 U/L (12-78); ALBUMIN 2.3 g/dL (3.4-5.0); ALKALINE PHOSPHATASE 129 U/L (46-116); ASPARTATE AMINOTRANSFERASE 23 U/L (15-37); BILIRUBIN,DIRECT 0.2 mg/dL (0.0-0.2); BILIRUBIN,TOTAL 0.7 mg/dL (0.2-1.0); TOTAL PROTEIN, SERUM 6.6 g/dL (6.4-8.2)
--- NOTE | 2021-07-15 04:27 | NUR ---
at bedside for procedure
[2021-07-15] MEDS ORDERED: PIPERACILLIN /TAZOBACTAM 3.375 G in IV D5W 50 ML IV ONE (05:00)
[2021-07-15] MEDS ORDERED: VANCOMYCIN 1 GM in IV D5W 250 ML IV ONE (05:00)
[2021-07-15] MEDS ORDERED: VANCOMYCIN 1 GM VIAL ONE (05:09)
[2021-07-15] MEDS ORDERED: PIPERACILLIN /TAZOBACTAM 3.375 G VIAL IV ONE (05:09)
--- NOTE | 2021-07-15 05:11 | NUR ---
CALLED [facility] TO INFORM THEM THAT THE WORKUP WAS COMPLETED FOR TRANSFER. BODEGA SAID THAT WE SHOULD BE EXPECTING A CALL FROM THEIR RECIEVING DOCTOR PROMPTLY
--- NOTE | 2021-07-15 05:55 | NUR ---
DR RODRIGUEZ CALLED. DR MAKI IS IN ICU FOR A PROCEDURE. WILL CALL [facility] ONCE DR. WHITING IS BACK
--- NOTE | 2021-07-15 06:04 | NUR ---
called and left a message
--- NOTE | 2021-07-15 06:10 | NUR ---
Per us, pt positive for dvt in LUE
--- NOTE | 2021-07-15 06:37 | NUR ---
[facility] ADA[facility] MD PAGED
--- NOTE | 2021-07-15 07:05 | NUR ---
gave report to kourtney Bee for jyoti
[2021-07-15] MEDS ORDERED: ACET-2605 PO (08:00)
[2021-07-15] MEDS ORDERED: MELA5TAB PO (08:00)
[2021-07-15] MEDS ORDERED: VITA1TAB56 PO (08:00)
[2021-07-15] MEDS ORDERED: XTANDI PO (08:00)
--- NOTE | 2021-07-15 08:20 | NUR ---
PT ACCEPTED TO [facility] DR. DONNELLY NEED BED AND TRANSFER INFO
[2021-07-15 08:24] VITALS: BP 121/55
--- NOTE | 2021-07-15 08:35 | NUR ---
PT PROVIDED W/ BREAKFAST TRAY. RESTING. ON MONITOR W/ STABLE VITALS.
--- NOTE | 2021-07-15 09:46 | NUR ---
GOING TO TELE- 2107B UNDER Shelley [facility]BULANCE ETA. 20 MINS. REPORT GIVEN TO MITCHELL WHITTINGTON.
== END 2021-07-15 10:24 | disposition short-term general hospital (02) ==
LOC: ER 03:13
DX: A41.9 Sepsis, unspecified organism (principal); L03.114 Cellulitis of left upper limb; Z86.73 Personal history of transient ischemic attack (TIA), and cerebral infarction without residual deficits; N18.6 End stage renal disease; I80.8 Phlebitis and thrombophlebitis of other sites; Z99.2 Dependence on renal dialysis; Z85.46 Personal history of malignant neoplasm of prostate; I89.0 Lymphedema, not elsewhere classified; S81.812A Laceration without foreign body, left lower leg, initial encounter; W45.8XXA Other foreign body or object entering through skin, initial encounter; W22.8XXA Striking against or struck by other objects, initial encounter; Y93.89 Activity, other specified; Y92.238 Other place in hospital as the place of occurrence of the external cause; Z20.822 Contact with and (suspected) exposure to COVID-19
CPT/HCPCS: 12004; 36415; 71045; 80048; 80076; 83605; 84145; 84484; 85025; 85730; 87040 ×2; 87426; 93005; 93971; 96365; 96368; 99291; C9803; J2543; J3370; J3490; J7060

== ENCOUNTER 2022-02-03 15:52 | Emergency (ER) | payer OTHER ==
[~2022-02-03] VITALS: Ht 172.7 cm; Wt 75.7 kg
[~2022-02-03 15:52] MED LIST changes: +ACET-2605 PO; +MELA5TAB PO; +VITA1TAB56 PO; +XTANDI PO; -[UNRECOGNIZED DRUG - OTHER] PO
--- NOTE | 2022-02-03 16:02 | NUR ---
[id number], C/O WEAKNESS S/P HD TODAY, PATIENT STS HE FELL AT HOME. DENIES ANY INJURY. TO ER BED 4, HOOKED TO MONITOR, CHANGED TO HOSP GOWN, NOTED W JUAN LUIS DIALYSIS ACCESS, LUE EDEMA +4, R ELBOW BRUISE AND SKIN TEAR. WARM BLANKET PROVIDED, PATIENT AAO x 3. BREATHING EVEN AND UNLABORED. AWAITING MD AHUJA
--- NOTE | 2022-02-03 16:17 | NUR ---
DR MURPHY AT BEDSIDE
--- NOTE | 2022-02-03 16:22 | NUR ---
CLEANSED R ELBOW SKIN TEAR WITH NS, PAT DRY, APPLIED TRIPLE ANTIBIOTIC, COVERED W CLEAN GAUZE.
[2022-02-03] MEDS ORDERED: CEFEPIME 1 GM in IV D5W 50 ML IV ONE (16:30)
[2022-02-03] MEDS ORDERED: VANCOMYCIN 1 GM in IV D5W 250 ML IV ONE (16:30)
--- NOTE | 2022-02-03 16:35 | NUR ---
PATIENT NOT ABLE TO PROVIDE URINE SAMPLE. MADE MD AWARE
[2022-02-03 17:15] LABS: BASOPHILS % (AUTO) 0.3 % (0.0-2.0); EOSINOPHILS % (AUTO) 0.3 % (0.0-6.0); HEMATOCRIT 35 % (39-51); HEMOGLOBIN 11.4 g/dL (13.5-17.5); LYMPHOCYTES # (AUTO) 0.3 K/uL (0.8-4.8); LYMPHOCYTES % (AUTO) 6.4 % (20.0-44.0); MEAN CORPUSCULAR HGB CONC 32 g/dl (31.0-36.0); MEAN CORPUSCULAR VOLUME 94 fL (80-96); MONOCYTES # (AUTO) 0.1 K/uL (0.1-1.30); MONOCYTES % (AUTO) 1.7 % (2.0-12.0); NEUTROPHILS # (AUTO) 4.5 K/uL (1.8-8.9); NEUTROPHILS % (AUTO) 91.3 % (43.0-81.0); PLATELET COUNT (AUTO) 159 K/uL (150-450); RED BLOOD CELL COUNT(AUTO) 3.73 MIL/uL (4.5-6.0)
[2022-02-03 17:21] LABS: SERUM AMMONIA 10 umol/L (11-32)
[2022-02-03 17:30] LABS: CALCIUM, SERUM 8.6 mg/dL (8.5-10.1); CARBON DIOXIDE 31 mmol/L (21-32); CHLORIDE 102 mmol/L (98-107); CREATININE 2.5 mg/dL (0.6-1.3); GLUCOSE 87 mg/dL (74-106); POTASSIUM 3.1 mmol/L (3.5-5.1); SODIUM SERUM 141 mmol/L (136-145); UREA NITROGEN, BLOOD 27 mg/dL (7-18)
--- NOTE | 2022-02-03 17:30 | NUR ---
PATIENT NOT ABLE TO PROVIDE URINE SAMPLE. MADE MD AWARE
[2022-02-03 17:33] LABS: THYROID STIMULATING HORMONE 4.63 uIU/mL (0.358-3.74)
[2022-02-03 17:36] LABS: ALANINE AMINOTRANSFERASE 7 U/L (12-78); ALBUMIN 2.6 g/dL (3.4-5.0); ALKALINE PHOSPHATASE 130 U/L (46-116); ASPARTATE AMINOTRANSFERASE 19 U/L (15-37); BILIRUBIN,DIRECT 0.2 mg/dL (0.0-0.2); BILIRUBIN,TOTAL 0.7 mg/dL (0.2-1.0); LIPASE 82 U/L (73-393); MAGNESIUM 2.3 mg/dL (1.8-2.4); TOTAL PROTEIN, SERUM 6.5 g/dL (6.4-8.2)
[2022-02-03] MEDS ORDERED: TRAM50TA2 PO (17:48)
[2022-02-03] MEDS ORDERED: ASPI-1420 PO (17:48)
[2022-02-03] MEDS ORDERED: NITR0.4T48 SL (17:48)
[2022-02-03 17:52] LABS: BAND % (MANUAL) 3 % (0.0-5.0); LYMPHOCYTES % (MANUAL) 6 % (16-48); MONOCYTES % (MANUAL) 1 % (0-11.0); NEUTROPHILS % (MANUAL) 90 (42-76)
--- NOTE | 2022-02-03 18:37 | NUR ---
PATIENT NOT ABLE TO PROVIDE URINE SAMPLE. MADE MD AWARE
--- NOTE | 2022-02-03 19:27 | NUR ---
REPORT GIVEN TO SAMEER WHITTINGTON FOR SUZIE
--- NOTE | 2022-02-03 19:34 | NUR ---
COVID ANTIGEN SWAB COLLECTED AND SENT TO LAB
--- NOTE | 2022-02-03 20:01 | NUR ---
CALLED [facility] WITH COVID RESULT, PT HAS BED AVAILABLE.
[2022-02-03 20:30] VITALS: BP 149/70
--- NOTE | 2022-02-03 21:07 | NUR ---
[facility] NOT[facility]
--- NOTE | 2022-02-03 23:26 | NUR ---
ALS- [facility] ETA 12:15 TELE BED ROOM 5300 MD BREANNA Rosa [phone]
--- NOTE | 2022-02-03 23:43 | NUR ---
REPORT GIVEN TO PK VILLALPANDO
--- NOTE | 2022-02-03 23:55 | NUR ---
REPORT GIVEN TO EMS AT BEDSIDE
--- NOTE | 2022-02-09 14:10 | NUR ---
ADDENDUM. 1 GRAM OF CEFEPIME IN 50ML WAS STARTED AT 1703 R AC 20G RUNNING AT 100ML/1HR. CEFEPIME COMPLETED AT 1733. PT TOLERATED ANTIBIOTIC FLUID WELL.
== END 2022-02-04 | disposition short-term general hospital (02) ==
LOC: ER 15:57
DX: L03.114 Cellulitis of left upper limb (principal); N18.6 End stage renal disease; Z99.2 Dependence on renal dialysis; Z79.82 Long term (current) use of aspirin; Z79.899 Other long term (current) drug therapy; C61 Malignant neoplasm of prostate; R53.83 Other fatigue; Z20.822 Contact with and (suspected) exposure to COVID-19
CPT/HCPCS: 36415; 71045; 73080; 80048; 80076; 82140; 82550; 83690; 83735; 84443; 84484 ×2; 85007; 85025; 85730; 87040 ×2; 87426; 96365; 96367; 99291; 99292; C9803; J0692; J3370; J7060

== ENCOUNTER 2022-04-28 14:23 | Emergency (ER) | payer OTHER ==
[~2022-04-28] VITALS: Ht 172.7 cm; Wt 77.1 kg
[~2022-04-28 14:23] MED LIST changes: +ASPI-1420 PO; +NITR0.4T48 SL; +TRAM50TA2 PO
--- NOTE | 2022-04-28 14:57 | NUR ---
COVID ANTIGEN SWAB DONE AND SENT TO THE LAB
[2022-04-28] MEDS ORDERED: IV NS 0.9% 500 ML BAG IV ONE (15:00)
--- NOTE | 2022-04-28 15:00 | NUR ---
AV SHUNT ON LT UPPER ARM
--- NOTE | 2022-04-28 15:00 | NUR ---
AV SHUNT ON LT UPPER ARM WITH GOOD BRITE
--- NOTE | 2022-04-28 15:03 | NUR ---
PLANT CULTURE MANAGER AT THE BEDSIDE
[2022-04-28 15:26] LABS: BASOPHILS % (AUTO) 0.3 % (0.0-2.0); EOSINOPHILS % (AUTO) 0.9 % (0.0-6.0); HEMATOCRIT 33 % (39-51); LYMPHOCYTES # (AUTO) 0.4 K/uL (0.8-4.8); LYMPHOCYTES % (AUTO) 9.4 % (20.0-44.0); MEAN CORPUSCULAR HGB CONC 33 g/dl (31.0-36.0); MEAN CORPUSCULAR VOLUME 92 fL (80-96); MONOCYTES # (AUTO) 0.1 K/uL (0.1-1.30); MONOCYTES % (AUTO) 2.1 % (2.0-12.0); NEUTROPHILS # (AUTO) 3.8 K/uL (1.8-8.9); NEUTROPHILS % (AUTO) 87.3 % (43.0-81.0); PLATELET COUNT (AUTO) 185 K/uL (150-450); RED BLOOD CELL COUNT(AUTO) 3.61 MIL/uL (4.5-6.0); WHITE BLOOD COUNT (AUTO) 4.3 K/uL (4.3-11.0)
--- NOTE | 2022-04-28 15:30 | NUR ---
US ON LT UPPER ARM AT BED SIBE
[2022-04-28 15:42] LABS: ALANINE AMINOTRANSFERASE 8 U/L (12-78); ALBUMIN 2.7 g/dL (3.4-5.0); ALKALINE PHOSPHATASE 137 U/L (46-116); ASPARTATE AMINOTRANSFERASE 22 U/L (15-37); BILIRUBIN,DIRECT 0.4 mg/dL (0.0-0.2); BILIRUBIN,TOTAL 1.1 mg/dL (0.2-1.0); CALCIUM, SERUM 8.6 mg/dL (8.5-10.1); CARBON DIOXIDE 32 mmol/L (21-32); CHLORIDE 103 mmol/L (98-107); CREATININE 3.2 mg/dL (0.6-1.3); GLUCOSE 84 mg/dL (74-106); SODIUM SERUM 143 mmol/L (136-145); TOTAL PROTEIN, SERUM 6.8 g/dL (6.4-8.2); UREA NITROGEN, BLOOD 44 mg/dL (7-18)
--- NOTE | 2022-04-28 16:26 | NUR ---
CALLED [facility] AND AWAITING FOR A CALL BACK FOR PEER TO PEER
[2022-04-28] MEDS ORDERED: VANCOMYCIN 1 GM in IV D5W 250 ML IV ONE (16:30)
[2022-04-28] MEDS ORDERED: PIPERACILLIN /TAZOBACTAM 3.375 G in IV D5W 50 ML IV ONE (16:30)
--- NOTE | 2022-04-28 18:45 | NUR ---
WATING FOR MONITER BED
--- NOTE | 2022-04-28 19:35 | NUR ---
[facility] CALLED WITH ACCEPTING INFO: ACCEPTED TO [facility] ACCEPTING DR. PRINGLE TRANSFER ER TO ER CALL FOR REPORT [phone] ALS TRANSPORT ETA 2015
--- NOTE | 2022-04-28 19:36 | NUR ---
HAND OFF TO CLEARE RN
--- NOTE | 2022-04-28 19:48 | NUR ---
[facility] IS REQUESTING TO TRANSFER PATIENT TO [facility] INSTEAD OF [facility]. PER MD [facility] AND [facility], ALL HOSPITAL ARE FULL, THEY TRIED PLACING HIM THERE BUT CM FROM [place] CANNOT FIND A SPACE FOR HIM
--- NOTE | 2022-04-28 19:48 | NUR ---
RECEIVED REPORT FROM PK RODRIGUEZ. CHECKED PATIENT, PT IS AAOX4. HAS SWELLING ON HIS WHOLE LEFT ARM. PATIENT HAS LEFT AV SHUNT ACCESS FOR HD. PER PATIENT LAST HD WAS THIS MORNING. HE WAS ADVICED BY HD NURSE TO COME TO ER. PATIENT HAS PERIPHERAL LINE ON RIGHT AC G18. WITH OXYGEN INH AT 2LPM. NINA WAS DONE TO PATIENT EARLIER ON HIS LEFT ARM. VITALS CHECKED. PATIENT IS BEING MONITORED.
--- NOTE | 2022-04-28 20:41 | NUR ---
TRIED CALLING [facility] SEVERAL TIMES WITH OTHER NUMBER [phone] NOT PICKING UP. SPOKE TO EMS [facility] GT OF UNIT [facility]. INFORMED HIM THAT I WAS TRYING TO CALL THE NUMBERS FOR [facility] VIEYRAGA LISTED BUT NOT PICKING UP. IF HE CAN TELL THE ACCEPTING NURSE TO CALL ME IF SHE/ HE NEEDS A REPORT.
--- NOTE | 2022-04-28 20:43 | NUR ---
REPORT GIVEN TO EMS GT OF [facility] UNIT [facility].
--- NOTE | 2022-04-28 20:57 | NUR ---
PATIENT TRANSFERRED TO [facility]. REPORT WAS NOT GIVEN TO ANY RN AT [place], NOBODY PICKING UP. SEVERAL ATTEMPTS MADE
[2022-04-28 21:00] VITALS: BP 134/65
== END 2022-04-28 21:01 | disposition short-term general hospital (02) ==
LOC: ER 14:30
DX: L03.114 Cellulitis of left upper limb (principal); I50.9 Heart failure, unspecified; N18.6 End stage renal disease; Z99.2 Dependence on renal dialysis; Z86.73 Personal history of transient ischemic attack (TIA), and cerebral infarction without residual deficits; E78.5 Hyperlipidemia, unspecified; Z85.46 Personal history of malignant neoplasm of prostate; D64.9 Anemia, unspecified; Z20.822 Contact with and (suspected) exposure to COVID-19
CPT/HCPCS: 36415; 71045; 80048; 80076; 83605; 83880; 84484; 85025; 85730; 87040 ×2; 87426; 93005; 93931; 93971; 96365; 96367; 99285; C9803; J2543; J3370; J7060; 93930-TC

== ENCOUNTER 2022-05-31 14:37 | Emergency (ER) | payer OTHER ==
[~2022-05-31] VITALS: Ht 172.7 cm; Wt 74.8 kg
[~2022-05-31 14:37] MED LIST changes: -ASPI-1420 PO; -NITR0.4T48 SL; -TRAM50TA2 PO; -VITA1TAB56 PO
--- NOTE | 2022-05-31 14:43 | NUR ---
BIBRA99 FROM HOME W/ C/O CHEST PAIN 5/10 WHEN PT BREATHES. PT STATES PAIN STARTED AT NOON-TIME AND ENDORSES NON-RADIATING PAIN. PT IS VERBALLY RESPONSOVE. TO ER BED 9, AWAITING MD AHUJA. ATTACHED TO MONITOR.
--- NOTE | 2022-05-31 14:49 | NUR ---
TECH AT BEDSIDE FOR EKG
--- NOTE | 2022-05-31 14:49 | NUR ---
DR SAMPSON AT BEDSIDE FOR EVAL
--- NOTE | 2022-05-31 15:01 | NUR ---
IV LINE IS ESTABLISHED, BLOOD SPECIMEN COLLECTED AND SENT TO THE LAB. THE LINE IS SALINE LOCKED.
--- NOTE | 2022-05-31 15:15 | NUR ---
COVID SWAB COLLECTED AND SENT TO LAB
--- NOTE | 2022-05-31 15:28 | NUR ---
MOVE SHEET SUBMITTED.
[2022-05-31 16:40] LABS: BASOPHILS % (AUTO) 0.3 % (0.0-2.0); EOSINOPHILS % (AUTO) 1.1 % (0.0-6.0); HEMATOCRIT 33 % (39-51); HEMOGLOBIN 10.8 g/dL (13.5-17.5); LYMPHOCYTES % (AUTO) 14.1 % (20.0-44.0); MEAN CORPUSCULAR HGB CONC 32 g/dl (31.0-36.0); MEAN CORPUSCULAR VOLUME 94 fL (80-96); MONOCYTES # (AUTO) 0.6 K/uL (0.1-1.30); MONOCYTES % (AUTO) 7.5 % (2.0-12.0); NEUTROPHILS # (AUTO) 5.7 K/uL (1.8-8.9); PLATELET COUNT (AUTO) 201 K/uL (150-450); RED BLOOD CELL COUNT(AUTO) 3.54 MIL/uL (4.5-6.0); WHITE BLOOD COUNT (AUTO) 7.4 K/uL (4.3-11.0)
[2022-05-31 17:10] LABS: CALCIUM, SERUM 8.6 mg/dL (8.5-10.1); CARBON DIOXIDE 32 mmol/L (21-32); CHLORIDE 102 mmol/L (98-107); CREATININE 3.7 mg/dL (0.6-1.3); GLUCOSE 98 mg/dL (74-106); POTASSIUM 4.1 mmol/L (3.5-5.1); SODIUM SERUM 140 mmol/L (136-145); UREA NITROGEN, BLOOD 44 mg/dL (7-18)
--- NOTE | 2022-05-31 17:39 | NUR ---
CALLED [facility] [phone]
--- NOTE | 2022-05-31 17:55 | NUR ---
[facility] CALL[facility] DR. RICHARDSON SPEAKING WITH DR. SAMPSON.
--- NOTE | 2022-05-31 19:11 | NUR ---
CALLED [facility]
--- NOTE | 2022-05-31 19:37 | NUR ---
RECEIVED PT IN BED 9, HE IS RESTING COMFORTABLY IN BED, AT BEDSIDE. PT IS ALERT AND ORIENTED. STATES HE IS HAVING PAIN UPON BREATHING IN 3/10 ON PAIN SCALE. MADE AWARE
[2022-05-31] MEDS ORDERED: ACETAMINOPHEN ES 500 MG TABLET ONE (19:47)
[2022-05-31] MEDS ORDERED: ACETAMINOPHEN ES 500 MG TABLET PO ONE (20:00)
--- NOTE | 2022-05-31 20:25 | NUR ---
URINAL PROVIDED TO PT
[2022-05-31 22:54] VITALS: BP 117/59
--- NOTE | 2022-05-31 22:57 | NUR ---
[facility] AND SPOKE WITH JAY. PT IS ACCEPTED AT [facility], [facility] UNDER DR. Licha MARTIN
--- NOTE | 2022-05-31 22:57 | NUR ---
PROVIDED WARM BLANKETS, DENIES ANY PAIN. WILL CONTINUE TO MONITOR
--- NOTE | 2022-05-31 23:20 | NUR ---
PRATIK FROM [facility] CALLED AND PROVIDED TRANSFER INFO. PT IS ACCEPTED AT [facility], ROOM 531-A , UNDER DR. MARTIN NUMBER FOR REPORT IS [phone] [facility] TRANSPORT ETA IS 00:00. TRANSPORT ORDERED AT 11:15
--- NOTE | 2022-06-01 00:03 | NUR ---
REPORT GIVEN TO SUNDEEP
--- NOTE | 2022-06-01 00:05 | NUR ---
RAC18 IV LINE REMOVED, PRESSURED APPLIED. NO BLEEDING NOTED
--- NOTE | 2022-06-01 00:07 | NUR ---
IV LINE ESTABLISHED, RAC20G
== END 2022-06-01 02:28 | disposition short-term general hospital (02) ==
LOC: ER 14:45
DX: R07.9 Chest pain, unspecified (principal); N18.6 End stage renal disease; Z99.2 Dependence on renal dialysis; C61 Malignant neoplasm of prostate; C79.02 Secondary malignant neoplasm of left kidney and renal pelvis; Z20.822 Contact with and (suspected) exposure to COVID-19; E78.5 Hyperlipidemia, unspecified; Z86.73 Personal history of transient ischemic attack (TIA), and cerebral infarction without residual deficits; I44.4 Left anterior fascicular block
CPT/HCPCS: 99285; 71045; 87426; 93005 ×2; 85025; 80048; 36415; 84484 ×3; 85730; 87081; 83880; C9803

== ENCOUNTER 2022-06-11 13:12 | Emergency (ER) | payer OTHER ==
[~2022-06-11] VITALS: Ht 172.7 cm; Wt 70.8 kg
--- NOTE | 2022-06-11 13:30 | NUR ---
ADOLFO 81 FROM DIALYSIS CENTER D/T LOW BP OF 86/50; PT +COVID 2 DAYS AGO. TO ER BED 5. ATTACHED TO MONITOR.
--- NOTE | 2022-06-11 13:55 | NUR ---
PT NOTED W/ FISTULA ON JUAN LUIS FOR DIALYSIS.
--- NOTE | 2022-06-11 13:58 | NUR ---
IV LINE ESTABLISHED ON RFA #20, BLOOD DRAWN AND SENT TO LAB.
[2022-06-11 14:08] LABS: BASOPHILS % (AUTO) 0.8 % (0.0-2.0); HEMATOCRIT 30 % (39-51); HEMOGLOBIN 9.8 g/dL (13.5-17.5); LYMPHOCYTES # (AUTO) 0.8 K/uL (0.8-4.8); MEAN CORPUSCULAR HGB CONC 33 g/dl (31.0-36.0); MEAN CORPUSCULAR VOLUME 93 fL (80-96); MONOCYTES # (AUTO) 0.7 K/uL (0.1-1.30); MONOCYTES % (AUTO) 14.2 % (2.0-12.0); NEUTROPHILS # (AUTO) 3.2 K/uL (1.8-8.9); PLATELET COUNT (AUTO) 202 K/uL (150-450); RED BLOOD CELL COUNT(AUTO) 3.21 MIL/uL (4.5-6.0); WHITE BLOOD COUNT (AUTO) 4.7 K/uL (4.3-11.0)
--- NOTE | 2022-06-11 14:21 | NUR ---
COVID SWAB COLLECTED AND SENT TO LAB
[2022-06-11 14:30] LABS: ALANINE AMINOTRANSFERASE 10 U/L (12-78); ALBUMIN 2.3 g/dL (3.4-5.0); ALKALINE PHOSPHATASE 121 U/L (46-116); ASPARTATE AMINOTRANSFERASE 16 U/L (15-37); BILIRUBIN,DIRECT 0.2 mg/dL (0.0-0.2); BILIRUBIN,TOTAL 0.8 mg/dL (0.2-1.0); CALCIUM, SERUM 7.7 mg/dL (8.5-10.1); CARBON DIOXIDE 26 mmol/L (21-32); CHLORIDE 101 mmol/L (98-107); CREATININE 5.8 mg/dL (0.6-1.3); GLUCOSE 115 mg/dL (74-106); POTASSIUM 4.5 mmol/L (3.5-5.1); SODIUM SERUM 139 mmol/L (136-145); TOTAL PROTEIN, SERUM 6.2 g/dL (6.4-8.2)
[2022-06-11 14:36] LABS: UREA NITROGEN, BLOOD 80 mg/dL (7-18)
--- NOTE | 2022-06-11 14:46 | NUR ---
CALLED [facility] [phone].
--- NOTE | 2022-06-11 14:50 | NUR ---
DR. FERNANDEZ WILL CALL US BACK.
--- NOTE | 2022-06-11 15:02 | NUR ---
COVID + PER LAB.
--- NOTE | 2022-06-11 15:04 | NUR ---
CALLED [facility] PER GISELA PT CAN NOT BE DIALYZED TOMORROW. BYRON ASHFORD INFORMED.
--- NOTE | 2022-06-11 17:08 | NUR ---
CALLED [facility] [phone] STILL AWAITING ACCEPTANCE AT [facility] OF [facility] AND WILL UPDATE US SOON ONE IS AVAILABLE.
[2022-06-11] MEDS ORDERED: IV NS 0.9% 1,000 ML BAG IV ONE (17:30)
--- NOTE | 2022-06-11 18:43 | NUR ---
DR. FERNANDEZ CALLED BACK AND UPDATED W/ PT'S VS. PER DR. FERNANDEZ, PT WILL BE GOING TO [facility].
--- NOTE | 2022-06-11 20:35 | NUR ---
beverley handler (daughter) [phone]
--- NOTE | 2022-06-11 20:36 | NUR ---
TRANSFER INFO: PT GOING TO [facility] ROOM 5112, ACCEPTED BY DR TERRIE Izquierdo MD, [facility] ETA 2130 RN FOR REPORT [phone]
[2022-06-11 21:37] VITALS: BP 109/50
--- NOTE | 2022-06-11 22:03 | NUR ---
REPORT GIVEN TO TYRONE CRUZ RN FROM [facility] FOR SUZIE.
--- NOTE | 2022-06-11 22:53 | NUR ---
REPORT GIVEN TO EMT [facility] UNIT 192 FOR PT TO TRANSFER TO [facility].
== END 2022-06-12 00:28 | disposition short-term general hospital (02) ==
LOC: ER 13:50
DX: I95.9 Hypotension, unspecified (principal); U07.1 COVID-19; N18.6 End stage renal disease; Z99.2 Dependence on renal dialysis; Z86.73 Personal history of transient ischemic attack (TIA), and cerebral infarction without residual deficits; E78.5 Hyperlipidemia, unspecified; Z85.46 Personal history of malignant neoplasm of prostate; I48.91 Unspecified atrial fibrillation
CPT/HCPCS: 99291; 87426; 93005; 71045; 85025; 80048; 80076; 36415; 84484; 85730; 83880; J7040; C9803

== ENCOUNTER 2022-09-28 23:16 | Emergency (ER) | payer OTHER ==
[~2022-09-28] VITALS: Ht 172.7 cm; Wt 68.0 kg
--- NOTE | 2022-09-29 00:05 | NUR ---
PATIENT BIB FOR C/O LUE REDNESS X 1 DAY. PT HAS A JUAN LUIS HD SHUNT W/ LAST SAT. PATIENT IS A/O X 4, RR EVEN AND UNLABORED NO SOB NOTED. VSS. PATIENT IS AFEBRILE. WILL CONTINUE TO MONITOR.
[2022-09-29 00:57] LABS: BASOPHILS % (AUTO) 0.2 % (0.0-2.0); EOSINOPHILS % (AUTO) 2.5 % (0.0-6.0); HEMATOCRIT 40 % (39-51); HEMOGLOBIN 12.9 g/dL (13.5-17.5); LYMPHOCYTES # (AUTO) 0.9 K/uL (0.8-4.8); LYMPHOCYTES % (AUTO) 21.6 % (20.0-44.0); MEAN CORPUSCULAR HGB CONC 32 g/dl (31.0-36.0); MEAN CORPUSCULAR VOLUME 95 fL (80-96); MONOCYTES % (AUTO) 0.4 % (2.0-12.0); NEUTROPHILS # (AUTO) 3.2 K/uL (1.8-8.9); NEUTROPHILS % (AUTO) 75.3 % (43.0-81.0); PLATELET COUNT (AUTO) 232 K/uL (150-450); RED BLOOD CELL COUNT(AUTO) 4.24 MIL/uL (4.5-6.0); WHITE BLOOD COUNT (AUTO) 4.3 K/uL (4.3-11.0)
[2022-09-29 01:02] LABS: CALCIUM, SERUM 9.2 mg/dL (8.5-10.1); CARBON DIOXIDE 26 mmol/L (21-32); CHLORIDE 99 mmol/L (98-107); CREATININE 4.1 mg/dL (0.6-1.3); GLUCOSE 103 mg/dL (74-106); POTASSIUM 4.3 mmol/L (3.5-5.1); SODIUM SERUM 138 mmol/L (136-145)
--- NOTE | 2022-09-29 01:08 | NUR ---
bun 109 made aware
[2022-09-29] MEDS ORDERED: VANCOMYCIN 1 GM VIAL ONE (01:09)
[2022-09-29] MEDS ORDERED: methylPREDNISolone SOD SUCC 125 MG/2ML VIAL ONE (01:09)
[2022-09-29] MEDS: VANCOMYCIN 1 GM in IV D5W 250 ML IV ONE (01:16)
[2022-09-29] MEDS: methylPREDNISolone SOD SUCC 125 MG/2ML VIAL IV ONE (01:16)
--- NOTE | 2022-09-29 01:19 | NUR ---
CALLED [facility] AND PAGED ADRIAN FOR PEER TO PEER
[2022-09-29 01:31] LABS: ALANINE AMINOTRANSFERASE 6 U/L (12-78); ALBUMIN 2.7 g/dL (3.4-5.0); ALKALINE PHOSPHATASE 270 U/L (46-116); ASPARTATE AMINOTRANSFERASE 26 U/L (15-37); BILIRUBIN,DIRECT 0.3 mg/dL (0.0-0.2); BILIRUBIN,TOTAL 0.7 mg/dL (0.2-1.0); TOTAL PROTEIN, SERUM 7.6 g/dL (6.4-8.2)
[2022-09-29 01:34] LABS: UREA NITROGEN, BLOOD 106 mg/dL (7-18)
--- NOTE | 2022-09-29 02:31 | NUR ---
[facility] ACCEPTED BY DR. CHAVEZ GOING TO ER [phone] FOR REPORT
[2022-09-29 03:00] VITALS: BP 115/60
--- NOTE | 2022-09-29 03:15 | NUR ---
REPORT GIVEN TO PK BERRY
[2022-09-29] MEDS ORDERED: diphenhydrAMINE HCL 50 MG CAPSULE ONE (03:18)
[2022-09-29] MEDS: diphenhydrAMINE HCL 25 MG CAPSULE PO ONE (03:31)
--- NOTE | 2022-09-29 03:46 | NUR ---
[facility] AT BED SIDE TO SALES SUPPORT ADVISOR THE PT
--- NOTE | 2022-09-29 04:03 | NUR ---
PT WAS TRANSFERRED TO [facility] IN STABLE CONDITION VIA [facility].
== END 2022-09-29 04:05 | disposition short-term general hospital (02) ==
LOC: ER 23:18
DX: L03.313 Cellulitis of chest wall (principal); L03.113 Cellulitis of right upper limb; N18.6 End stage renal disease; Z99.2 Dependence on renal dialysis; E78.5 Hyperlipidemia, unspecified; C61 Malignant neoplasm of prostate; C79.9 Secondary malignant neoplasm of unspecified site; Z86.73 Personal history of transient ischemic attack (TIA), and cerebral infarction without residual deficits; Z79.899 Other long term (current) drug therapy; I44.4 Left anterior fascicular block; Z20.822 Contact with and (suspected) exposure to COVID-19
CPT/HCPCS: 99285; 71045; 93005; 36415; 96365; 93971; 96375; 87426; 84145; 85025; 80048; 87040 ×2; 83605; 80076; 84484; 85730; Q0163; J2930; J3370; C9803

== ENCOUNTER 2022-12-02 11:59 | Emergency (ER) | payer OTHER ==
[~2022-12-02] VITALS: Ht 172.7 cm; Wt 68.0 kg
[2022-12-02 13:56] LABS: BASOPHILS % (AUTO) 0.1 % (0.0-2.0); EOSINOPHILS % (AUTO) 0.1 % (0.0-6.0); HEMATOCRIT 39 % (39-51); HEMOGLOBIN 12.1 g/dL (13.5-17.5); LYMPHOCYTES # (AUTO) 0.5 K/uL (0.8-4.8); LYMPHOCYTES % (AUTO) 4.8 % (20.0-44.0); MEAN CORPUSCULAR HGB CONC 31 g/dl (31.0-36.0); MEAN CORPUSCULAR VOLUME 96 fL (80-96); MONOCYTES # (AUTO) 0.3 K/uL (0.1-1.30); MONOCYTES % (AUTO) 2.5 % (2.0-12.0); NEUTROPHILS # (AUTO) 9.9 K/uL (1.8-8.9); NEUTROPHILS % (AUTO) 92.5 % (43.0-81.0); PLATELET COUNT (AUTO) 218 K/uL (150-450); RED BLOOD CELL COUNT(AUTO) 4.06 MIL/uL (4.5-6.0); WHITE BLOOD COUNT (AUTO) 10.8 K/uL (4.3-11.0)
[2022-12-02 14:19] LABS: ALANINE AMINOTRANSFERASE 6 U/L (12-78); ALBUMIN 2.3 g/dL (3.4-5.0); ALKALINE PHOSPHATASE 408 U/L (46-116); ASPARTATE AMINOTRANSFERASE 23 U/L (15-37); BILIRUBIN,DIRECT 0.6 mg/dL (0.0-0.2); BILIRUBIN,TOTAL 1.3 mg/dL (0.2-1.0); CALCIUM, SERUM 8.3 mg/dL (8.5-10.1); CARBON DIOXIDE 27 mmol/L (21-32); CHLORIDE 104 mmol/L (98-107); CREATININE 3.3 mg/dL (0.6-1.3); GLUCOSE 71 mg/dL (74-106); POTASSIUM 5.2 mmol/L (3.5-5.1); SODIUM SERUM 139 mmol/L (136-145); TOTAL PROTEIN, SERUM 7.2 g/dL (6.4-8.2); UREA NITROGEN, BLOOD 42 mg/dL (7-18)
[2022-12-02] MEDS ORDERED: VANCOMYCIN 1 GM in IV D5W 250 ML IV ONE (16:00)
--- NOTE | 2022-12-02 16:10 | NUR ---
CALLED [facility] [phone]
--- NOTE | 2022-12-02 16:16 | NUR ---
DR. AMEZCUA WILL CALL US BACK.
[2022-12-02] MEDS ORDERED: DEXTROSE 50%-WATER 50 ML DISP.SYRIN IVP ONE (16:30)
[2022-12-02] MEDS ORDERED: FUROSEMIDE 40 MG/4 ML VIAL IV ONE (16:30)
[2022-12-02] MEDS ORDERED: INSULIN REGULAR, HUMAN 100 UNIT/ML 10 ML VIAL IV ONE (16:30)
[2022-12-02] MEDS ORDERED: FUROSEMIDE 40 MG/4 ML VIAL ONE (16:47)
[2022-12-02] MEDS ORDERED: INSULIN REGULAR, HUMAN 100 UNIT/ML 10 ML VIAL ONE (16:47)
[2022-12-02] MEDS ORDERED: DEXTROSE 50%-WATER 50 ML DISP.SYRIN ONE (16:52)
--- NOTE | 2022-12-02 17:21 | NUR ---
COVID SWAB COLLECTED AND SENT TO LAB
--- NOTE | 2022-12-02 19:00 | NUR ---
JUAN LUIS HD FISTULA NOTED WITH REDNESS
[2022-12-02 19:26] VITALS: BP 115/54
--- NOTE | 2022-12-02 20:22 | NUR ---
report given to Remigio WHITTINGTONadmission discharge rn nurse at [facility]
--- NOTE | 2022-12-02 20:24 | NUR ---
REPORT GIVEN TO MARIA ELENA STONE CARRIAGE OPERATOR FOR SUZIE; PATIENT TRANSFERRING TO [facility]
--- NOTE | 2022-12-02 20:33 | NUR ---
PT TRANSFERRING TO [facility] FOR SUZIE
--- NOTE | 2022-12-02 20:34 | NUR ---
report given to penny oconnell
== END 2022-12-03 | disposition short-term general hospital (02) ==
LOC: ER 12:02
DX: N18.6 End stage renal disease (principal); I50.9 Heart failure, unspecified; L03.114 Cellulitis of left upper limb; E78.5 Hyperlipidemia, unspecified; E86.9 Volume depletion, unspecified; Z99.2 Dependence on renal dialysis; Z20.822 Contact with and (suspected) exposure to COVID-19; Z85.46 Personal history of malignant neoplasm of prostate; Z86.73 Personal history of transient ischemic attack (TIA), and cerebral infarction without residual deficits; Z98.890 Other specified postprocedural states; Z79.899 Other long term (current) drug therapy; Z88.8 Allergy status to other drugs, medicaments and biological substances
CPT/HCPCS: 99285; 96365; 96375; 71045; 96366; 87426; 93005; 84145; 85025; 80048; 87040 ×2; 83605 ×2; 80076; 84132; 36415; 84484; 85730; 83880; 82962; J1940; J1815; J3370; C9803; J7060

== ENCOUNTER 2023-02-09 21:56 | Emergency (ER) | payer OTHER ==
[~2023-02-09] VITALS: Ht 172.7 cm; Wt 71.7 kg
--- NOTE | 2023-02-09 22:20 | NUR ---
BIBRA99. ALTERED MENTAL STATUS 1 HR CLINICAL LABORATORY MANAGER. NOTED HYPOTENSIVE, LOW O2 SAT. PT AWAKE, ALERT TO NAME, RESPONSIVE TO VERBAL STIMULI. PLACED COMFORTABLY IN BED, VITALS CHECKED. PLACED IN [place] POSITION.
--- NOTE | 2023-02-09 22:20 | NUR ---
PT W/ 18GA LAC ESTABLISHED CARBON CAPTURE POWER PLANT OPERATOR.
--- NOTE | 2023-02-09 22:35 | NUR ---
18GA MIHAI LIRA
--- NOTE | 2023-02-09 22:40 | NUR ---
COVID ANTIGEN SWAB COLLECTED AND SENT TO LAB
[2023-02-09] MEDS ORDERED: LIDOCAINE 2% JEL UROJET 10 ML MM ONE (22:42)
--- NOTE | 2023-02-09 22:45 | NUR ---
BLOOD COLLECTED AND SENT TO LAB
[2023-02-09] MEDS ORDERED: VANCOMYCIN 1 GM VIAL ONE (22:46)
[2023-02-09] MEDS ORDERED: ACETAMINOPHEN 650 MG/SUPP.RECT RC ONE ×2 (22:47→23:00)
--- NOTE | 2023-02-09 22:55 | NUR ---
URINE COLLECTED AND SENT TO LAB
[2023-02-09] MEDS ORDERED: IV NS 0.9% 1,000 ML BAG IV ONE (23:00)
[2023-02-09] MEDS ORDERED: VANCOMYCIN 1 GM in IV D5W 250 ML IV ONE (23:00)
--- NOTE | 2023-02-09 23:06 | NUR ---
XR AT BEDSIDE
[2023-02-09 23:33] LABS: BASOPHILS % (AUTO) 0.2 % (0.0-2.0); EOSINOPHILS % (AUTO) 0.1 % (0.0-6.0); HEMATOCRIT 27 % (39-51); HEMOGLOBIN 8.6 g/dL (13.5-17.5); LYMPHOCYTES # (AUTO) 0.5 K/uL (0.8-4.8); LYMPHOCYTES % (AUTO) 6.4 % (20.0-44.0); MEAN CORPUSCULAR HGB CONC 32 g/dl (31.0-36.0); MEAN CORPUSCULAR VOLUME 96 fL (80-96); MONOCYTES # (AUTO) 0.3 K/uL (0.1-1.30); MONOCYTES % (AUTO) 3.7 % (2.0-12.0); NEUTROPHILS # (AUTO) 7.7 K/uL (1.8-8.9); NEUTROPHILS % (AUTO) 89.6 % (43.0-81.0); PLATELET COUNT (AUTO) 311 K/uL (150-450); RED BLOOD CELL COUNT(AUTO) 2.82 MIL/uL (4.5-6.0); WHITE BLOOD COUNT (AUTO) 8.6 K/uL (4.3-11.0)
[2023-02-09 23:50] LABS: CALCIUM, SERUM 8.2 mg/dL (8.5-10.1); CARBON DIOXIDE 26 mmol/L (21-32); CHLORIDE 104 mmol/L (98-107); CREATININE 2.9 mg/dL (0.6-1.3); GLUCOSE 99 mg/dL (74-106); POTASSIUM 3.9 mmol/L (3.5-5.1); SODIUM SERUM 138 mmol/L (136-145); UREA NITROGEN, BLOOD 27 mg/dL (7-18)
[2023-02-09 23:59] LABS: ALANINE AMINOTRANSFERASE 7 U/L (12-78); ALKALINE PHOSPHATASE 184 U/L (46-116); ASPARTATE AMINOTRANSFERASE 23 U/L (15-37); BILIRUBIN,DIRECT 0.4 mg/dL (0.0-0.2); BILIRUBIN,TOTAL 0.7 mg/dL (0.2-1.0); TOTAL PROTEIN, SERUM 5.4 g/dL (6.4-8.2)
[2023-02-10 00:01] LABS: ALBUMIN 1.3 g/dL (3.4-5.0)
--- NOTE | 2023-02-10 00:17 | NUR ---
FOR UPDATES, PETR PARR (PARTNER FOR 26YRS) [phone] CP
[2023-02-10 00:27] LABS: BILIRUBIN,URINE NEGATIVE (NEGATIVE); COLOR,URINE DARK YELLOW (YELLOW); LEUKOCYTE ESTERASE ,URINE NEGATIVE (NEGATIVE); NITRITE, URINE NEGATIVE (NEGATIVE); PH,URINE 5.5 (5.0-8.0); PROTEIN,URINE 1+ mg/dl (NEGATIVE); UGLUCOSE NEGATIVE (NEGATIVE); UROBILINOGEN,URINE 0.2 EU/dL (0.2)
[2023-02-10 00:29] LABS: BACTERIA,URINE Rare /HPF (None Seen); SQUAMOUS EPITHELIAL CELL,UR Rare /HPF (None Seen); WBC,URINE 0-2 /HPF (0-3)
--- NOTE | 2023-02-10 00:48 | NUR ---
[facility] CALLED, AWAITING CALL BACK FROM BYRON ASHFORD.
--- NOTE | 2023-02-10 01:14 | NUR ---
BYRON ADAIR MD ON THE PHONE WITH DR. CHAN
--- NOTE | 2023-02-10 03:55 | NUR ---
PT GOING TO [facility] UNDER THE CARE OF DR. RON. PT IS GOING TO ROOM [facility]0B. CALL [phone] FOR REPORT. [facility] ETA @ 1003.
--- NOTE | 2023-02-10 04:21 | NUR ---
REPORT GIVEN TO PK ALANIS AT [facility]. REPORT GIVEN AT BEDSIDE TO TOSHIA Sahni/ [facility]122
[2023-02-10 04:32] VITALS: BP 100/64
== END 2023-02-10 04:42 | disposition short-term general hospital (02) ==
LOC: ER 21:57
DX: A41.9 Sepsis, unspecified organism (principal); L03.313 Cellulitis of chest wall; I13.10 Hypertensive heart and chronic kidney disease without heart failure, with stage 1 through stage 4 chronic kidney disease, or unspecified chronic kidney disease; N18.9 Chronic kidney disease, unspecified; I50.9 Heart failure, unspecified; J90 Pleural effusion, not elsewhere classified; E88.09 Other disorders of plasma-protein metabolism, not elsewhere classified; Z98.890 Other specified postprocedural states; Z79.899 Other long term (current) drug therapy; Z20.822 Contact with and (suspected) exposure to COVID-19
CPT/HCPCS: 99291; 96365; 70450; 87426; 93005 ×2; 87040 ×4; 71045; 85025; 80048; 83605 ×2; 80076; 36415 ×2; 84484; 85730; 81001; J3490; J3370; J7030; A4223; C9803